=== PATIENT | female | born 1955 | race Caucasian/White ===

== ENCOUNTER → 2017-12-15 | Outpatient (CLI) | payer OTHER | END | disposition home or self-care (01) | LOC: RAD 10:43 | DX: R07.81 Pleurodynia (principal); Z85.41 Personal history of malignant neoplasm of cervix uteri | CPT/HCPCS: 71101 ==

== ENCOUNTER 2019-01-22 17:16 | Emergency (ER) | payer OTHER ==
[~2019-01-22] VITALS: Ht 154.9 cm; Wt 47.2 kg
[2019-01-22 17:44] LABS: BASO % 1 % (0-3); EOS % 1 % (0-3); HEMATOCRIT 21.9 % (36.0-47.0); HEMOGLOBIN 7.4 g/dL (12.0-15.5); LYMPH # 0.6 x10^3/uL (1.0-4.8); LYMPH % 10 % (24-48); MEAN CORPUSCULAR HEMOGLOBIN 30 pg (25-35); MEAN CORPUSCULAR HGB CONC 34 g/dL (31-37); MEAN CORPUSCULAR VOLUME 90 fL (79-100); MONO # 0.5 x10^3/uL (0.0-1.1); MONO % 8 % (0-9); NEUT % 81 % (31-73); PLATELET COUNT 188 x10^3/uL (140-400); RED BLOOD COUNT 2.42 x10^6/uL (3.50-5.40); RED CELL DISTRIBUTION WIDTH 17.7 % (11.5-14.5); WHITE BLOOD COUNT 6.2 x10^3/uL (4.0-11.0)
[2019-01-22] MEDS ORDERED: IV NORMAL SALINE 1000ML BAG 1,000 ML IV ONE (17:45)
[2019-01-22 17:50] LABS: CALCIUM 8.9 mg/dL (8.5-10.1); CREATININE 1.3 mg/dL (0.6-1.0); GFR 41.2; POTASSIUM 3.6 mmol/L (3.5-5.1)
[2019-01-22 17:58] LABS: ALBUMIN 3.1 g/dL (3.4-5.0); ALBUMIN/GLOBULIN RATIO 1.1 (1.0-1.7); MAGNESIUM 1.8 mg/dL (1.8-2.4); TOTAL BILIRUBIN 0.4 mg/dL (0.2-1.0); TOTAL PROTEIN 5.9 g/dL (6.4-8.2)
[2019-01-22] MEDS ORDERED: fentaNYL PF VIAL 100 MCG/2 ML VIAL IV ONE (18:00)
--- NOTE | 2019-01-22 18:03 | PHYS DOC ---
Past Medical History Past Medical History: Cancer, High Cholesterol, Other Additional Past Medical Histor: "thyroid problem" (YESSICA BAILON MD) Past Surgical History: Hysterectomy, Other Additional Past Surgical Histo: colon surgery 2017, (YESSICA BAILON MD) Alcohol Use: None Drug Use: None (YESSICA BAILON MD) Adult General Chief Complaint Chief Complaint: SYNCOPE HPI HPI Patient is a 63 year old female patient with history of metastatic cervical cancer to colon liver who presents via EMS with complaining of syncopal episode after procedure. Patient had radiation catheter placement in right lower abdomen today and had radiation and while going home with her had a syncopal episode without a fall or seizure activity that last for a few seconds. EMS reported that patient had blood pressure of 90s over 60s that improved to 115 at arrival to ER. Patient states that she didn't eat since 2200 last night and had some liquid after the procedure. Patient states she had 3 episodes of syncope about 10 days ago after chemotherapy has had history of syncope previously. Patient denies chest pain, headache, shortness of breath, focal neuro deficit, nausea and vomiting, diarrhea, urinary symptom. Patient complaining of mild pain in her abdomen but his stated her radiation oncologist was concern for possible intra-abdominal bleeding. (YESSICA BAILON MD) Review of Systems Review of Systems Constitutional: Denies fever or chills [] Eyes: Denies change in visual acuity, redness, or eye pain [] HENT: Denies nasal congestion or sore throat [] Respiratory: Denies cough or shortness of breath [] Cardiovascular: No additional information not addressed in HPI [] GI: Denies nausea, vomiting, bloody stools or diarrhea, reports abdominal pain [] : Denies dysuria or hematuria [] Musculoskeletal: Denies back pain or joint pain [] Integument: Denies rash or skin lesions [] Neurologic: Denies headache, focal weakness or sensory changes [] Endocrine: Denies polyuria or polydipsia [] All other systems were reviewed and found to be within normal limits, except as documented in this note. (YESSICA BAILON MD) Current Medications Current Medications Current Medications Medications (Trade) Dose Ordered Sig/Ottoniel Start Time Stop Time Status Last Admin Dose Admin Fentanyl Citrate (Fentanyl 2ml Vial) 50 mcg 1X ONCE 01/22/19 18:00 01/22/19 18:04 DC 01/22/19 18:04 50 MCG Sodium Chloride 1,000 ml @ 1,000 mls/hr 1X ONCE 01/22/19 17:45 01/22/19 18:44 DC 01/22/19 17:55 1,000 MLS/HR (DAR RECINOS Jr. DO) Allergies Allergies Allergies Coded Allergies Type Severity Reaction Last Updated Verified No Known Drug Allergies 09/09/13 No (DAR RECINOS Jr. DO) Physical Exam Physical Exam Constitutional: Well developed, well nourished, mild distress, non-toxic appearance. [] HENT: Normocephalic, atraumatic, dry oral mucosa. Eyes: PERRLA, EOMI, conjunctiva normal, no discharge. [] Neck: Normal range of motion, no tenderness, supple, no stridor. [] Cardiovascular:Heart rate regular rhythm, no murmur [] Lungs & Thorax: Bilateral breath sounds clear to auscultation [] Abdomen: Bowel sounds normal, soft, generalized guarding without tenderness, surgical dressing] lower quadrant, no masses, no pulsatile masses. [] Skin: Warm, dry, no erythema, no rash. [] Back: No tenderness, no CVA tenderness. [] Extremities: No tenderness, no cyanosis, no clubbing, ROM intact, no edema. [] Neurologic: Alert and oriented X 3, no focal deficits noted. [] Psychologic: Affect normal, judgement normal, mood normal. [] (YESSICA BAILON MD) Current Patient Data Vital Signs Vital Signs Date Time Temp Pulse Resp B/P (MAP) Pulse Ox O2 Delivery O2 Flow Rate FiO2 01/22/19 18:24 76 13 118/46 (70) 100 Room Air 01/22/19 17:17 98.1 98.1 (DAR RECINOS Jr. DO) Lab Values Laboratory Tests Test 01/22/19 17:30 White Blood Count 6.2 x10^3/uL (4.0-11.0) Red Blood Count 2.42 x10^6/uL (3.50-5.40) L Hemoglobin 7.4 g/dL (12.0-15.5) L Hematocrit 21.9 % (36.0-47.0) L Mean Corpuscular Volume 90 fL (79-100) Mean Corpuscular Hemoglobin 30 pg (25-35) Mean Corpuscular Hemoglobin Concent 34 g/dL (31-37) Red Cell Distribution Width 17.7 % (11.5-14.5) H Platelet Count 188 x10^3/uL (140-400) Neutrophils (%) (Auto) 81 % (31-73) H Lymphocytes (%) (Auto) 10 % (24-48) L Monocytes (%) (Auto) 8 % (0-9) Eosinophils (%) (Auto) 1 % (0-3) Basophils (%) (Auto) 1 % (0-3) Neutrophils # (Auto) 5.0 x10^3/uL (1.8-7.7) Lymphocytes # (Auto) 0.6 x10^3/uL (1.0-4.8) L Monocytes # (Auto) 0.5 x10^3/uL (0.0-1.1) Eosinophils # (Auto) 0.0 x10^3/uL (0.0-0.7) Basophils # (Auto) 0.0 x10^3/uL (0.0-0.2) Sodium Level 141 mmol/L (136-145) Potassium Level 3.6 mmol/L (3.5-5.1) Chloride Level 104 mmol/L (98-107) Carbon Dioxide Level 27 mmol/L (21-32) Anion Gap 10 (6-14) Blood Urea Nitrogen 21 mg/dL (7-20) H Creatinine 1.3 mg/dL (0.6-1.0) H Estimated GFR (Cockcroft-Gault) 41.2 BUN/Creatinine Ratio 16 (6-20) Glucose Level 95 mg/dL (70-99) Calcium Level 8.9 mg/dL (8.5-10.1) Magnesium Level 1.8 mg/dL (1.8-2.4) Total Bilirubin 0.4 mg/dL (0.2-1.0) Aspartate Amino Transferase (AST) 20 U/L (15-37) Alanine Aminotransferase (ALT) 19 U/L (14-59) Alkaline Phosphatase 109 U/L (46-116) Troponin I Quantitative < 0.017 ng/mL (0.000-0.055) Total Protein 5.9 g/dL (6.4-8.2) L Albumin 3.1 g/dL (3.4-5.0) L Albumin/Globulin Ratio 1.1 (1.0-1.7) Laboratory Tests 01/22/19 17:30 Laboratory Tests 01/22/19 17:30 (DAR RECINOS Jr. DO) EKG EKG EKG interpreted by me. EKG at 1721 showed sinus bradycardia at rate of 59, no acute ST and T-wave elevation. (YESSICA BAILON MD) Radiology/Procedures Radiology/Procedures [][facility] [address] [place] [address] IMAGING REPORT Signed PATIENT: PÉREZ BETHEAACCOUNT: [id number] : 1955 LOCATION: [facility] AGE: 62 SEX: F EXAM STATUS: REG CLI ORD. PHYSICIAN: ROBERT BRADLEY MD REASON: RT MID-LOW RIB PAIN. H/O OF CERVICAL CANCER WITH METS. NKI PROCEDURE: RIBS RIGHT AND PA CHEST Right RIBS with chest, 3 views, 12/15/2017: HISTORY: Rib pain, known metastases No previous radiographs are available at this time for comparison purposes. A left Port-A-Cath extends into the superior vena cava. The heart size is normal. There is calcific plaquing of the aorta. No pulmonary infiltrate is seen. There is no evidence of pleural fluid or pneumothorax. No right rib fracture or destructive bony lesion is seen. IMPRESSION: 1. No significant right rib abnormality is detected. 2. A left Port-A-Cath extends into the superior vena cava. Electronically signed by: Lee Sharp MD (12/15/2017 3:00 PM) [facility] DICTATED and SIGNED BY: LEE SHARP MD DATE: 12/15/17 2050 (YESSICA BAILON MD) Impressions: PROCEDURE: CT ABDOMEN PELVIS WO CONTRAST Exam: CT abdomen and pelvis without contrast INDICATION: Syncope, nausea after radiation treatment TECHNIQUE: Sequential axial images through the abdomen and pelvis obtained without IV contrast. Sagittal and coronal reformatted images were reconstructed from the axial data and reviewed. Comparisons: None FINDINGS: Heart size is normal. No pericardial effusion. Visualized lung bases are clear. No pleural effusion. Evaluation of the solid organs is limited secondary to noncontrast technique. 5.7 x 4.4 cm mass within the inferior right hepatic lobe. Spleen, pancreas, gallbladder and adrenals are unremarkable. No perinephric inflammation or hydronephrosis. Contrast is seen excreting through the collecting system bilaterally. Bladder is distended and appears thin-walled. Contrast seen filling the bladder. Uterus is absent. No abnormal adnexal mass. A few scattered diverticula noted at the sigmoid colon. Postsurgical changes noted at the sigmoid colon and splenic flexure. Appendix is normal. No free intra-abdominal air or fluid. Mild haziness within the mesenteric fat. Abdominal aorta has a normal course and caliber. Embolization coiling noted within the upper midabdomen. No enlarged intra-abdominal lymph nodes are identified. No suspicious osseous lesion or acute fracture. IMPRESSION: 1. Large right hepatic mass measuring up to 5.7 cm. Some hyperdensity is noted within the mass, which may relate to calcification and/or posttreatment change. Correlate with any other prior imaging. 2. Contrast is being excreted by the kidneys and seen in the bladder. Correlate for prior contrast administration. 3. Mild haziness of the mesentery which is nonspecific, could be related to inflammation or related to posttreatment change. If abdominal symptoms persist consider short-term follow-up imaging. Exposure: One or more of the following in the visualized dose reduction techniques were utilized for this examination: 1. Automated exposure control 2. Adjustment of the MA and/or KV according to patient size 3. Use of iterative of reconstructive technique Electronically signed by: Sergei Salcedo MD (01/22/2019 6:41 PM) [facility] DICTATED and SIGNED BY: SERGEI SALCEDO MD DATE: 01/22/19 184 PROCEDURE: CT HEAD WO CONTRAST Exam: CT head INDICATION: Syncope TECHNIQUE: Sequential axial images through the head were obtained without the administration of IV contrast. Comparisons: None FINDINGS: No focal parenchymal lesion or hemorrhage is identified. There is no midline shift or sulcal effacement. No acute vascular territory infarction is identified. Villareal-white distinction is preserved. The ventricular system is within normal limits without compression hydrocephalus. The basal cisterns are well maintained. The visualized portions of the paranasal sinuses and mastoid air cells are well-pneumatized. No acute fractures. IMPRESSION: No acute intracranial abnormality. Exposure: One or more of the following in the visualized dose reduction techniques were utilized for this examination: 1. Automated exposure control 2. Adjustment of the MA and/or KV according to patient size Use of iterative of reconstructive technique Electronically signed by: Sergei Salcedo MD (01/22/2019 6:31 PM) [place] [id number] PROCEDURE: PORTABLE CHEST 1V Exam: Chest one view INDICATION: Syncope TECHNIQUE: Frontal view of the chest Comparisons: 01/22/2019 FINDINGS: Left anterior chest wall port with catheter tip at the SVC. The cardiomediastinal silhouette and pulmonary vessels are within normal limits. The lung and pleural spaces are clear. IMPRESSION: No acute cardiopulmonary process. Electronically signed by: Sergei Salcedo MD (01/22/2019 6:18 PM) [place] [address] DICTATED and SIGNED BY: SERGEI SALCEDO MD DATE: 01/22/191817 (DAR RECINOS Jr., DO) Course & Med Decision Making Course & Med Decision Making Pertinent Labs and Imaging studies pending. Sign out given to at 1800 for further evaluation and final disposition. Discussed current findings and plan with patient and family, who acknowledge understanding and agreement. (YESSICA BAILON MD) Dragon Disclaimer Dragon Disclaimer This electronic medical record was generated, in whole or in part, using a voice recognition dictation system. (YESSICA BAILON MD) Departure Departure Impression: Primary Impression: Syncope Additional Impression: Primary cervical cancer with metastasis to other site Disposition: HOME, SELF-CARE Condition: STABLE Referrals: CLAYTON ALFARO (PCP) Patient Instructions: Syncope Problem Qualifiers Primary Impression: Syncope Syncope type: unspecified Qualified Codes: R55 - Syncope and collapse YESSICA BAILON MD Jan 22, 2019 18:02 DAR RECINOS Jr., DO Jan 22, 2019 18:57
--- NOTE | 2019-01-22 18:21 | RAD ---
Exam: Chest one view INDICATION: Syncope TECHNIQUE: Frontal view of the chest Comparisons: 01/22/2019 FINDINGS: Left anterior chest wall port with catheter tip at the SVC. The cardiomediastinal silhouette and pulmonary vessels are within normal limits. The lung and pleural spaces are clear. IMPRESSION: No acute cardiopulmonary process. Electronically signed by: Sergei Cruz MD (01/22/2019 6:18 PM) [facility]
--- NOTE | 2019-01-22 18:34 | RAD ---
Exam: CT head INDICATION: Syncope TECHNIQUE: Sequential axial images through the head were obtained without the administration of IV contrast. Comparisons: None FINDINGS: No focal parenchymal lesion or hemorrhage is identified. There is no midline shift or sulcal effacement. No acute vascular territory infarction is identified. Villareal-white distinction is preserved. The ventricular system is within normal limits without compression hydrocephalus. The basal cisterns are well maintained. The visualized portions of the paranasal sinuses and mastoid air cells are well-pneumatized. No acute fractures. IMPRESSION: No acute intracranial abnormality. Exposure: One or more of the following in the visualized dose reduction techniques were utilized for this examination: 1. Automated exposure control 2. Adjustment of the MA and/or KV according to patient size Use of iterative of reconstructive technique Electronically signed by: Sergei Cruz MD (01/22/2019 6:31 PM) [facility]
--- NOTE | 2019-01-22 18:44 | RAD ---
Exam: CT abdomen and pelvis without contrast INDICATION: Syncope, nausea after radiation treatment TECHNIQUE: Sequential axial images through the abdomen and pelvis obtained without IV contrast. Sagittal and coronal reformatted images were reconstructed from the axial data and reviewed. Comparisons: None FINDINGS: Heart size is normal. No pericardial effusion. Visualized lung bases are clear. No pleural effusion. Evaluation of the solid organs is limited secondary to noncontrast technique. 5.7 x 4.4 cm mass within the inferior right hepatic lobe. Spleen, pancreas, gallbladder and adrenals are unremarkable. No perinephric inflammation or hydronephrosis. Contrast is seen excreting through the collecting system bilaterally. Bladder is distended and appears thin-walled. Contrast seen filling the bladder. Uterus is absent. No abnormal adnexal mass. A few scattered diverticula noted at the sigmoid colon. Postsurgical changes noted at the sigmoid colon and splenic flexure. Appendix is normal. No free intra-abdominal air or fluid. Mild haziness within the mesenteric fat. Abdominal aorta has a normal course and caliber. Embolization coiling noted within the upper midabdomen. No enlarged intra-abdominal lymph nodes are identified. No suspicious osseous lesion or acute fracture. IMPRESSION: 1. Large right hepatic mass measuring up to 5.7 cm. Some hyperdensity is noted within the mass, which may relate to calcification and/or posttreatment change. Correlate with any other prior imaging. 2. Contrast is being excreted by the kidneys and seen in the bladder. Correlate for prior contrast administration. 3. Mild haziness of the mesentery which is nonspecific, could be related to inflammation or related to posttreatment change. If abdominal symptoms persist consider short-term follow-up imaging. Exposure: One or more of the following in the visualized dose reduction techniques were utilized for this examination: 1. Automated exposure control 2. Adjustment of the MA and/or KV according to patient size 3. Use of iterative of reconstructive technique Electronically signed by: Sergei Cruz MD (01/22/2019 6:41 PM) [facility]
[2019-01-22 20:00] VITALS: BP 107/50
[2019-01-22] MEDS ORDERED: HEPARIN PF 500 UNIT/5 ML DISP.SYRIN. IV ONE (20:00)
== END 2019-01-22 20:05 | disposition home or self-care (01) ==
LOC: ER 17:16
DX: C78.7 Secondary malignant neoplasm of liver and intrahepatic bile duct (principal); C78.5 Secondary malignant neoplasm of large intestine and rectum; C53.9 Malignant neoplasm of cervix uteri, unspecified; R55 Syncope and collapse; E78.00 Pure hypercholesterolemia, unspecified; Z90.710 Acquired absence of both cervix and uterus
CPT/HCPCS: 36415; 70450; 71045; 74176; 80053; 83735; 84484; 85025; 96361; 96374; 96375; 99285; J3010; J7030